=== PATIENT | female | born 1960 | race Caucasian/White ===

== ENCOUNTER → 2017-01-22 | Outpatient (CLI) | payer MEDICAID, OTHER ==
[2017-01-22 19:10] LABS: CH 29.8; CHCM 34.2; HCT 38.6 % (34.0-46.0); HDW 2.69; HGB 13.1 gm/dL (11.4-16.0); MCH 29.6 pg (25.0-35.0); MCHC 33.9 g/dL (31.0-37.0); MCV 87.4 fL (80.0-100.0); Mean Platelet Volume 7.3; RBC 4.41 m/uL (3.80-5.40); RDW 13.4 % (11.5-15.5); WBC 9.4 k/uL (3.8-10.6)
[2017-01-22 19:18] LABS: ALT 27 U/L (9-52); AST 21 U/L (14-36); Alkaline Phosphatase 76 U/L (38-126); Anion Gap 12 mmol/L; Blood Urea Nitrogen 13 mg/dL (7-17); Calcium 9.6 mg/dL (8.4-10.2); Carbon Dioxide 27 mmol/L (22-30); Chloride 102 mmol/L (98-107); Glucose 98 mg/dL (74-99); Non-African American GFR(MDRD) >60 (>60 ml/min/1.73 sqM); Sodium 141 mmol/L (137-145); Total Bilirubin 0.5 mg/dL (0.2-1.3)
== END ==
LOC: LABMAIN 18:36
PROVIDERS: ATTEND Hospitalist
DX: N39.0 Urinary tract infection, site not specified (principal)
CPT/HCPCS: 36415; 80053; 85027

== ENCOUNTER → 2017-04-06 | Outpatient (CLI) | payer OTHER ==
--- NOTE | 2017-04-08 07:11 | MM ---
Reason for exam: screening (asymptomatic). Last mammogram was performed 1 year and 8 months ago. History: Patient is postmenopausal. Took hormonal contraceptives for 6 years beginning at age 14. Took estrogen for 2 years beginning at age 51. Took progesterone for 2 years beginning at age 51. Physical Findings: A clinical breast exam by your physician is recommended on an annual basis and results should be correlated with mammographic findings. MG 3D Screening Mammo W/Cad Bilateral CC and MLO view(s) were taken. Prior study comparison: July 23, 2015, bilateral MG 3d screening mammo w/cad. July 03, 2014, bilateral MG screening mammo w CAD. June 02, 2013, bilateral digital screening mammo w/CAD. The breast tissue is heterogeneously dense. This may lower the sensitivity of mammography. Finding: There are 3 typically benign round calcifications in the right breast. There is no discrete abnormality. ASSESSMENT: Benign, BI-RAD 2 RECOMMENDATION: Routine screening mammogram of both breasts in 1 year.
== END | disposition home or self-care (01) ==
LOC: RADMAMWWP 09:35
PROVIDERS: ATTEND Obstetrics & Gynecology
DX: Z12.31 Encounter for screening mammogram for malignant neoplasm of breast (principal)
CPT/HCPCS: 77063; G0202

== ENCOUNTER → 2019-06-30 | Outpatient (CLI) | payer MEDICAID ==
--- NOTE | 2019-07-01 13:57 | MM ---
Reason for exam: screening (asymptomatic). Last mammogram was performed 2 years and 3 months ago. History: Patient is postmenopausal. Took hormonal contraceptives for 6 years beginning at age 14. Took estrogen for 2 years beginning at age 51. Took progesterone for 2 years beginning at age 51. Physical Findings: A clinical breast exam by your physician is recommended on an annual basis and results should be correlated with mammographic findings. MG 3D Screening Mammo W/Cad Bilateral CC and MLO view(s) were taken. Prior study comparison: April 06, 2017, bilateral MG 3d screening mammo w/cad. July 23, 2015, bilateral MG 3d screening mammo w/cad. The breast tissue is heterogeneously dense. This may lower the sensitivity of mammography. No suspicious abnormality. No significant changes when compared with prior studies. ASSESSMENT: Negative, BI-RAD 1 RECOMMENDATION: Routine screening mammogram of both breasts in 1 year.
== END | disposition home or self-care (01) ==
LOC: RADMAMWWP 08:41
PROVIDERS: ATTEND Family Medicine
DX: Z12.31 Encounter for screening mammogram for malignant neoplasm of breast (principal)
CPT/HCPCS: 77063; 77067

== ENCOUNTER → 2019-08-09 | Outpatient (CLI) | payer MEDICAID ==
--- NOTE | 2019-08-09 09:37 | BD ---
EXAMINATION TYPE: Axial Bone Density DATE OF EXAM: 08/09/2019 COMPARISON: 2011 CLINICAL HISTORY: Z 13.9 Height: 64 inches Weight: 158 pounds FRAX RISK QUESTIONS: Alcohol (3 or more units per day): no Family History (Parent hip fracture): yes, mother Glucocorticoids (More than 3mos):yes Advair daily (Ex: prednisone, prednisolone, methylprednisolone, dexamethasone, and hydrocortisone). History of Fracture in Adulthood: no Secondary Osteoporosis: 1. Type 1 Diabetes: no 2. Hyperthyroidism: no 3. Menopause before 45: no 4. Malnutrition: no 5. Chronic liver disease: no Rheumatoid Arthritis: no Current Tobacco Use: no RISK FACTORS HISTORY OF: Family History of Osteoporosis: yes, mother Active: yes Diet low in dairy products/other sources of calcium: no Postmenopausal woman: yes Take estrogen and/or progesterone medications: not now How long: hormonal contraceptives about 6 years, estrogen about 2 years Lost more than 2 inches in height since high school: no Frequent falls: no Poor Health: no Hyperparathyroidism: no Adrenal Insufficiency: no MEDICATIONS: Prednisone or other steroids: yes How Long: over 5 years Thyroid Medications: yes Which medication: Levothyroxine How Long: since about age 31 Osteoporosis Medications: no Additional Medications: occasional vitamin supplement Additional History: none to note EXAM MEASUREMENTS: Bone mineral densitometry was performed using the Central Test System. Bone mineral density as measured about the Lumbar spine is: ----- L1-L4(G/cm2): 1.190 T Score Values are as follows: ----- L2: -1.1 ----- L3: 0.6 ----- L4: 0.3 ----- L1-L4: 0.1 Bone mineral density has: Decreased -5.5% since study of: 04/16/2012 Bone mineral density about the R hip (g/cm2): 0.976 Bone mineral density about the L hip (g/cm2): 1.001 T Score values are as follows: -----R Neck: -0.4 -----L Neck: -0.3 -----R Total: 0.5 -----L Total: 0.4 Bone mineral density has: Decreased -4.4% since study of: 04/16/2012 IMPRESSION: Normal (Values between +1 and -1 indicate normal bone mass). Consider repeating this study in 5 year s or sooner if there is some new clinical indication. NOTE: T-SCORE=SD OF THE YOUNG ADULT MEAN.
--- NOTE | 2019-08-09 09:50 | US ---
EXAMINATION TYPE: US pelvic complete DATE OF EXAM: 08/09/2019 COMPARISON: NONE CLINICAL HISTORY: R10.2 PELVIC PAIN. TECHNIQUE: Transabdominal (TA). Date of LMP: 5+ years prior EXAM MEASUREMENTS: Uterus: 6.6 x 2.2 x 3.7 cm Endometrial Stripe: 0.3 cm Right Ovary: 1.4 x 1.2 x 1.2 cm Left Ovary: 1.8 x 1.0 x 1.0 cm 1. Uterus: Anteverted wnl 2. Endometrium: wnl 3. Right Ovary: wnl 4. Left Ovary: wnl 5. Bilateral Adnexa: wnl 6. Posterior cul-de-sac: wnl IMPRESSION: Unremarkable pelvic ultrasound. Endometrial thickness is within normal limits.
== END | disposition home or self-care (01) ==
LOC: RADBDWWP 08:06
PROVIDERS: ATTEND Family Medicine
DX: R10.2 Pelvic and perineal pain (principal); Z13.89 Encounter for screening for other disorder
CPT/HCPCS: 76856; 77080

== ENCOUNTER → 2020-09-28 | Outpatient (CLI) | payer MEDICAID ==
--- NOTE | 2020-10-01 12:03 | MM ---
Reason for exam: screening (asymptomatic). Last mammogram was performed 1 year and 3 months ago. History: Patient is postmenopausal. Took hormonal contraceptives for 6 years beginning at age 14. Took estrogen for 2 years beginning at age 51. Took progesterone for 2 years beginning at age 51. Physical Findings: A clinical breast exam by your physician is recommended on an annual basis and results should be correlated with mammographic findings. MG 3D Screening Mammo W/Cad Bilateral CC and MLO view(s) were taken. Prior study comparison: June 30, 2019, bilateral MG 3d screening mammo w/cad. April 06, 2017, bilateral MG 3d screening mammo w/cad. The breast tissue is heterogeneously dense. This may lower the sensitivity of mammography. There are benign appearing round calcifications in the right breast. There is no discrete abnormality. ASSESSMENT: Benign, BI-RAD 2 RECOMMENDATION: Routine screening mammogram of both breasts in 1 year.
== END | disposition home or self-care (01) ==
LOC: RADMAMWWP 10:27
PROVIDERS: ATTEND Obstetrics & Gynecology
DX: Z12.31 Encounter for screening mammogram for malignant neoplasm of breast (principal); Z78.0 Asymptomatic menopausal state
CPT/HCPCS: 77063; 77067

== ENCOUNTER → 2020-10-03 | Outpatient (CLI) | payer MEDICAID ==
--- NOTE | 2020-10-03 20:21 | ECHOF ---
Referral Reason:R01 cardiac murmur MEASUREMENTS -------- HEIGHT: 162.6 cm WEIGHT: 72.6 kg BP: RVIDd: 2.8 cm (< 3.3) IVSd: 1.0 cm (0.6 - 1.1) LVIDd: 4.2 cm (3.9 - 5.3) LVPWd: 1.3 cm (0.6 - 1.1) IVSs: 1.1 cm LVIDs: 3.1 cm LVPWs: 1.9 cm LA Diam: 3.2 cm (2.7 - 3.8) LAESV Index (A-L): 21.03 ml/m Ao Diam: 2.4 cm (2.0 - 3.7) AV Cusp: 1.6 cm (1.5 - 2.6) LA Diam: 2.6 cm (2.7 - 3.8) MV EXCURSION: 18.221 mm (> 18.000) MV EF SLOPE: 124 mm/s (70 - 150) EPSS: 0.2 cm MV E Ronald: 1.09 m/s MV DecT: 260 ms MV A Ronald: 1.08 m/s MV E/A Ratio: 1.01 AV maxP.77 mmHg AV meanP.87 mmHg RAP: 5.00 mmHg RVSP: 11.77 mmHg FINDINGS -------- Sinus rhythm. This was a technically adequate study. LV size, wall thickness and systolic function are normal, with an EF greater than 55%. The left alexx tricular size is normal. The right ventricle is normal in size. Normal LA size by volume 22+/-6 ml/m2. The right atrial size is normal. There is mild aortic stenosis present. Peak/mean gradient across the Aortic Valve is 19.77mmHg / 8. 87mmHg. The mitral valve is normal. Mild mitral regurgitation is present. The tricuspid valve appears structurally normal. Mild tricuspid regurgitation present. Right vent ricular systolic pressure is normal at < 35 mmHg. The pulmonic valve was not well visualized. There is no pulmonic regurgitation present. The aortic root size is normal. Echo free space represents a pericardial fat pad. CONCLUSIONS -------- 1. LV size, wall thickness and systolic function are normal, with an EF greater than 55%. 2. The left ventricular size is normal. 3. Normal LA size by volume 22+/-6 ml/m2. 4. There is mild aortic stenosis present. 5. Peak/mean gradient across the Aortic Valve is 19.77mmHg / 8.87mmHg. 6. Mild mitral regurgitation is present. 7. Mild tricuspid regurgitation present. 8. Echo free space represents a pericardial fat pad. MONUMENT LETTERER: Zoila Newberry RDCS
== END | disposition home or self-care (01) ==
LOC: RADECHMAIN 13:44
PROVIDERS: ATTEND Family Medicine
DX: I08.1 Rheumatic disorders of both mitral and tricuspid valves (principal)
CPT/HCPCS: 93306

== ENCOUNTER → 2020-12-14 | Outpatient (CLI) | payer MEDICAID ==
[2020-12-14 14:58] LABS: HCT 39.1 % (37.2-46.3); HGB 12.8 g/dL (12.0-15.0); MCH 28.8 pg (27.0-32.0); MCHC 32.7 g/dL (32.0-37.0); MCV 87.9 fL (80.0-97.0); Platelet Count 312 X 10*3/uL (140-440); RBC 4.45 X 10*6/uL (4.10-5.20); RDW 12.4 % (11.5-14.5); WBC 7.01 X 10*3/uL (4.50-10.00)
[2020-12-14 15:46] LABS: African American GFR (CKD) 107.6 (60.0-200.0); Albumin 4.7 g/dL (3.80-4.90); Albumin/Globulin Ratio 1.68 (1.60-3.17); Anion Gap 6.8 mmol/L (4.00-12.00); Calcium 9.4 mg/dL (8.7-10.3); Carbon Dioxide 29.2 mmol/L (21.6-31.8); Chol/HDL Ratio 2.17; Globulin 2.8 g/dL (1.6-3.3); LDL Cholesterol,Calculated 87.8 mg/dL (0.0-131.0); Non-African American GFR(CKD) 92.9 (60.0-200.0); Potassium 4.4 mmol/L (3.5-5.5); Total Bilirubin 0.5 mg/dL (0.2-1.2); Total Protein 7.5 g/dL (6.2-8.2); VLDL Calculation 15.2 mg/dL (5.00-40.00)
[2020-12-14 15:54] LABS: T4, Free (Free Thyroxine) 1.8 ng/dL (0.80-1.80)
== END | disposition home or self-care (01) ==
LOC: LABWHC1 09:22
PROVIDERS: ATTEND Family Medicine
DX: Z00.00 Encounter for general adult medical examination without abnormal findings (principal); E03.9 Hypothyroidism, unspecified; Z20.822 Contact with and (suspected) exposure to COVID-19; R79.89 Other specified abnormal findings of blood chemistry; R53.83 Other fatigue
CPT/HCPCS: 36415; 80053; 80061; 82306; 84439; 84443; 85027; 86769

== ENCOUNTER → 2021-06-07 | Outpatient (CLI) | payer MEDICAID | END | disposition home or self-care (01) | LOC: LABWHC1 13:34 | PROVIDERS: ATTEND Family Medicine | DX: Z20.828 Contact with and (suspected) exposure to other viral communicable diseases (principal) | CPT/HCPCS: 36415; 86769 ==

== ENCOUNTER → 2022-01-07 | Outpatient (CLI) | payer MEDICAID | END | disposition home or self-care (01) | LOC: RADMAMWWP 14:40 | PROVIDERS: ATTEND Obstetrics & Gynecology | DX: Z12.31 Encounter for screening mammogram for malignant neoplasm of breast (principal) | CPT/HCPCS: 77063; 77067 ==

== ENCOUNTER → 2022-01-13 | Outpatient (CLI) | payer MEDICAID ==
--- NOTE | 2022-01-13 08:21 | USB ---
Reason for Exam: Additional evaluation requested from abnormal screening. Last screening mammogram was performed less than 1 month ago. Patient History: Menarche at age 10. First Full-Term at age 22. Postmenopausal. Estrogen, starting at age 51 for 2 years. Progesterone, starting at age 51 for 2 years. Hormonal Contraceptives for 6 years from age 14 until age 20. Risk Values: [place] 5 year model risk: 1.4%. NCI Lifetime model risk: 6.0%. Prior Study Comparison: 06/30/2019 Bilateral Screening Mammogram, [facility]. 09/28/2020 Bilateral Screening Mammogram, [facility]. 01/07/2022 Bilateral MG 3D screening mammo w/cad, [facility]. Tissue Density: Right: The breast tissue is heterogeneously dense. This may lower the sensitivity of mammography. Findings: Analyzed By CAD. Mammogram Under compression the focal density within the anterior to mid right breast largely disperses. Under compression discrete suspicious architectural distortion, spiculated or lobular mass is not identified. Given the apparent change from prior mammograms ultrasound is recommended. Technique: Method: Targeted. Findings: The lower section of the breast of the right breast, the axilla of the right breast and the retroareolar of the right breast were scanned. Lower half of the right breast was evaluated with real-time linear array sonography. Near the 3:00 position 3 cm from the nipple there is an oval anechoic structure with posterior wall enhancement. This may be a cyst. Precautionary short-term follow-up mammogram and ultrasound is recommended. Overall Assessment: Probably benign, BI-RAD 3 Assessment: MG 3D work up w/cad RT - Right: Incomplete: need additional imaging evaluation, BI-RAD 0. US breast workup limited RT - Right: Probably benign, BI-RAD 3. Management: Diagnostic Mammogram of the right breast in 6 months. Diagnostic Breast Ultrasound of the right breast in 6 months. A clinical breast exam by your physician is recommended on an annual basis and results should be correlated with mammographic findings. Results were given to the patient verbally at the time of exam. Patient should continue monthly so breast exam. Negative mammogram or negative ultrasound should not preclude biopsy of suspicious palpable abnormalities. Electronically signed and approved by: Jose L Barton D.O. Radiologis
--- NOTE | 2022-01-14 14:31 | MM ---
Reason for Exam: Additional evaluation requested from abnormal screening. Last screening mammogram was performed less than 1 month ago. Patient History: Menarche at age 10. First Full-Term at age 22. Postmenopausal. Estrogen, starting at age 51 for 2 years. Progesterone, starting at age 51 for 2 years. Hormonal Contraceptives for 6 years from age 14 until age 20. Risk Values: [place] 5 year model risk: 1.4%. NCI Lifetime model risk: 6.0%. Prior Study Comparison: 06/30/2019 Bilateral Screening Mammogram, [facility]. 09/28/2020 Bilateral Screening Mammogram, [facility]. 01/07/2022 Bilateral MG 3D screening mammo w/cad, [facility]. Tissue Density: Right: The breast tissue is heterogeneously dense. This may lower the sensitivity of mammography. Findings: Analyzed By CAD. Mammogram Under compression the focal density within the anterior to mid right breast largely disperses. Under compression discrete suspicious architectural distortion, spiculated or lobular mass is not identified. Given the apparent change from prior mammograms ultrasound is recommended. Technique: Method: Targeted. Findings: The lower section of the breast of the right breast, the axilla of the right breast and the retroareolar of the right breast were scanned. Lower half of the right breast was evaluated with real-time linear array sonography. Near the 3:00 position 3 cm from the nipple there is an oval anechoic structure with posterior wall enhancement. This may be a cyst. Precautionary short-term follow-up mammogram and ultrasound is recommended. Overall Assessment: Probably benign, BI-RAD 3 Assessment: MG 3D work up w/cad RT - Right: Incomplete: need additional imaging evaluation, BI-RAD 0. US breast workup limited RT - Right: Probably benign, BI-RAD 3. Management: Diagnostic Mammogram of the right breast in 6 months. Diagnostic Breast Ultrasound of the right breast in 6 months. A clinical breast exam by your physician is recommended on an annual basis and results should be correlated with mammographic findings. Results were given to the patient verbally at the time of exam. Patient should continue monthly so breast exam. Negative mammogram or negative ultrasound should not preclude biopsy of suspicious palpable abnormalities. Electronically signed and approved by: Jose L Barton D.O. Radiologis
== END | disposition home or self-care (01) ==
LOC: RADMAMWWP 07:10
PROVIDERS: ATTEND Obstetrics & Gynecology
DX: R92.8 Other abnormal and inconclusive findings on diagnostic imaging of breast (principal)
CPT/HCPCS: 77061; 77065

== ENCOUNTER → 2022-02-27 | Outpatient (CLI) | payer MEDICAID ==
--- NOTE | 2022-02-27 17:50 | BD ---
EXAMINATION TYPE: Axial Bone Density DATE OF EXAM: 02/27/2022 COMPARISON: 2011 CLINICAL HISTORY: 61 years year old Female. ICD-10 CODE: N95.1 MENOPAUSAL AND FEMALE CLIMACTERIC STA CHRISTOPHE Height: 62.5 Weight: 146 FRAX RISK QUESTIONS: Alcohol (3 or more units per day): NO Family History (Parent hip fracture): MOTHER Glucocorticoids (More than 3mos): NO History of Fracture in Adulthood: NO Secondary Osteoporosis: 1. Type 1 Diabetes: NO 2. Hyperthyroidism: NO 3. Menopause before 45: NO 4. Malnutrition: NO 5. Chronic liver disease: NO Rheumatoid Arthritis: NO Current Tobacco Use: NO RISK FACTORS HISTORY OF: Hip Fracture (Right/Left): NO Spine Fracture: NO History of Wrist Fracture: NO Surgery to Spine/Hip(right/left)/Wrist (right/left): NO Family History of Osteoporosis: MOTHER Active: YES Diet low in dairy products/other sources of calcium: YES Postmenopausal woman: YES Take estrogen and/or progesterone medications: NO Lost more than 2 inches in height since high school: NO Frequent falls: NO Poor Health: NO Hyperparathyroidism: NO Adrenal Insufficiency: NO MEDICATIONS: Prednisone or other steroids: NO Thyroid Medications: LEVOTHYROXIN How Long: PAST 31 YEARS Osteoporosis Medications:NO Additional Medications: ADVAIR, INHALER, Additional History: EXAM MEASUREMENTS: Bone mineral densitometry was performed using the [employer] System. Bone mineral density as measured about the Lumbar spine is: ----- L1-L4(G/cm2): 1.168 T Score Values are as follows: ----- L1: 0.3 ----- L2: -0.6 ----- L3: 0.1 ----- L4: -0.1 ----- L1-L4: 0.0 Bone mineral density has: DECREASED 7.0 % since study of: 04/16/2012 Bone mineral density about the R hip (g/cm2): 0.950 Bone mineral density about the L hip (g/cm2): 0.965 T Score values are as follows: -----R Neck: -0.6 -----L Neck: -0.5 -----R Total: 0.4 -----L Total: 0.0 Bone mineral density has: DECREASED 6.7 % since study of: 04/16/2012 FRAX%s: The graph provided illustrates a 14.6% chance for a major osteoporotic fx and a 0.4% chance f or the hips probability for fx in 10 years time. IMPRESSION: Normal (Values between +1 and -1 indicate normal bone mass). Consider repeating this study in 5 year s or sooner if there is some new clinical indication. NOTE: T-SCORE=SD OF THE YOUNG ADULT MEAN.
== END | disposition home or self-care (01) ==
LOC: RADBDWWP 15:09
PROVIDERS: ATTEND Obstetrics & Gynecology
DX: N95.1 Menopausal and female climacteric states (principal)
CPT/HCPCS: 77080

== ENCOUNTER → 2022-05-22 | Outpatient (CLI) | payer MEDICAID ==
--- NOTE | 2022-05-22 10:46 | MM ---
Reason for Exam: Follow-up at short interval from prior study. Last screening mammogram was performed 4 month(s) ago. Patient History: Menarche at age 10. First Full-Term at age 22. Postmenopausal. Patient has history of breast feeding. Estrogen, starting at age 51 for 2 years. Progesterone, starting at age 51 for 2 years. Hormonal Contraceptives for 6 years from age 14 until age 20. Risk Values: [place] 5 year model risk: 1.4%. NCI Lifetime model risk: 6.0%. Prior Study Comparison: 04/06/2017 Bilateral Screening Mammogram, [facility]. 06/30/2019 Bilateral Screening Mammogram, [facility]. 09/28/2020 Bilateral Screening Mammogram, [facility]. 01/07/2022 Bilateral MG 3D screening mammo w/cad, [facility]. 01/13/2022 Right MG 3D work up w/cad RT, [facility]. 01/13/2022 Right US breast workup limited RT, [facility]. Tissue Density: Right: The breast tissue is heterogeneously dense. This may lower the sensitivity of mammography. Findings: Analyzed By CAD. The previous central inferior asymmetric density on the MLO view has not persisted. Patient may return to annual screening studies. No significant change from prior exams. Overall Assessment: Benign, BI-RAD 2 Management: Screening Mammogram of both breasts in 6 months. 1. Patient should continue monthly self breast exams. 2. A clinical breast exam by your physician is recommended on an annual basis. 3. This exam should not preclude additional follow-up of suspicious palpable abnormalities. Results were given to the patient verbally at the time of exam. Electronically signed and approved by: Kaylynn Ley M.D. Radiologist
== END | disposition home or self-care (01) ==
LOC: RADMAMWWP 09:54
PROVIDERS: ATTEND Obstetrics & Gynecology
DX: R92.8 Other abnormal and inconclusive findings on diagnostic imaging of breast (principal)
CPT/HCPCS: 77061; 77065

== ENCOUNTER → 2023-01-09 | Outpatient (CLI) | payer MEDICAID ==
[~2023-01-09] MED LIST: REGADENOSON 0.4 MG/5 ML SYRINGE IV PRN
--- NOTE | 2023-01-09 08:41 | CA ---
Transthoracic Echo Report Name: Paige Goins Age: 62 Gender: F : 1960 Exam Date: 01/09/2023 07:33 Exam Location: [place] [facility] Ht (in): 64 Wt (lb): 147 Ordering Physician: Keith Anaya MD ([id number]) Attending/Referring Phys: [employer] 5 Teacher Sariah Lisa RDCS Procedure CPT: Indications: abnormal ekg Cardiac Hx: Technical Quality: Fair Contrast 1: Total Dose (mL): Contrast 2: Total Dose (mL): MEASUREMENTS (Male / Female) Normal Values 2D ECHO LV Diastolic Diameter PLAX 4.8 cm 4.2 - 5.9 / 3.9 - 5.3 cm LV Systolic Diameter PLAX 3.0 cm IVS Diastolic Thickness 0.9 cm 0.6 - 1.0 / 0.6 - 0.9 cm LVPW Diastolic Thickness 1.1 cm 0.6 - 1.0 / 0.6 - 0.9 cm LV Relative Wall Thickness 0.4 RV Internal Dim ED PLAX 2.2 cm LA Volume 50.9 cm??? 18 - 58 / 22 - 52 cm??? M-MODE Aortic Root Diameter MM 2.3 cm LA Systolic Diameter MM 3.1 cm LA Ao Ratio MM 1.3 AV Cusp Separation MM 1.5 cm DOPPLER AV Peak Velocity 204.7 cm/s AV Peak Gradient 16.8 mmHg AV Mean Velocity 135.1 cm/s AV Mean Gradient 8.3 mmHg AV Velocity Time Integral 49.9 cm LVOT Peak Velocity 139.6 cm/s LVOT Peak Gradient 7.8 mmHg LVOT Velocity Time Integral 36.8 cm MV Area PHT 2.8 cm??? Mitral E Point Velocity 93.6 cm/s Mitral A Point Velocity 102.1 cm/s Mitral E to A Ratio 0.9 MV Deceleration Time 266.4 ms MV E' Velocity 11.7 cm/s Mitral E to MV E' Ratio 8.0 TR Peak Velocity 230.4 cm/s TR Peak Gradient 21.2 mmHg Right Ventricular Systolic Press 24.3 mmHg FINDINGS Left Ventricle Mildly increased left ventricular wall thickness. Left ventricular cavity size normal. Normal left ventricular systolic function with no obvious regional wall motion abnormalities. Left ventricular ejection fraction is estimated at 55-60 %. Right Ventricle Normal right ventricular size and function. Right ventricular systolic pressure within normal limits. Right Atrium Normal right atrial size. Left Atrium Normal left atrial size. Mitral Valve Structurally normal mitral valve. Mild mitral regurgitation. Aortic Valve Trileaflet aortic valve. No aortic stenosis. Trace aortic regurgitation. Tricuspid Valve Structurally normal tricuspid valve. Mild tricuspid regurgitation. Pulmonic Valve Trace pulmonic regurgitation. Pericardium No pericardial effusion. Aorta Normal size aortic root and proximal ascending aorta. CONCLUSIONS 1. Normal left ventricle size and systolic function 2. Mild mitral and tricuspid regurgitation 3. Trace aortic regurgitation Previewed by: Dr. Jaycee Ngo MD (Electronically Signed) Final Date: 09 January 2023 08:40
--- NOTE | 2023-01-09 11:11 | CA ---
Lexiscan Nuclear Stress Test Report Name: Paige Goins Exam Date: 01/09/2023 09:26 Exam Location: [place] Stress Ht (in): 64 Wt (lb): 157 BSA: 1.76 Ordering Phys: Keith Anaya MD Referring Phys: TORY,, Technologist: Maicol Camacho Age: 62 Gender: F : 1960 Procedure CPT: Indications: abnormal ekg ICD-10 Codes: Patient History: CHEST PAIN, FAMILY HX OF HEART DISEASE, ASTHMA Medications: SYNTHROID, ADVAIR Meds past 24 hrs: Pretest Chest Pain: STRESS TEST Lexiscan Protocol Exercise Duration (min:sec): 01:[address] Depressions (mm): Angina Score: Constantino Score: Resting HR (bpm): 53 Peak HR (bpm): 94 Resting BP (mmHg): 144 / 77 Peak BP (mmHg): 179 / 145 MPHR: 156 Target HR: 133 % MPHR: 60 METS: 1.0 Total Dose: Peak Dose: Atropine: Double Product: 17200 BP Response: Stress Termination: INFUSION COMPLETE Stress Symptoms: NAUSEA Stress Summary: ECG ANALYSIS Resting ECG: Sinus rhythm. Normal conduction. No arrhythmias. Non-specific ST-T wave changes. Stress ECG: T-wave inversion in the inferolateral leads CONCLUSIONS 1. Nondiagnostic electrocardiographic response to Lexiscan infusion with T-wave inversion of unclear etiology 2. Nuclear images will be reported separately Dr. Jaycee Ngo MD (Electronically Signed) Final Date: 09 January 2023 11:10
--- NOTE | 2023-01-09 15:50 | NM ---
EXAMINATION TYPE: NM stress lexiscan cardiolite DATE OF EXAM: 01/09/2023 COMPARISON: NONE HISTORY: Abnormal EKG TECHNIQUE: After the intravenous administration of 9.5 mCi Tc 99m Sestamibi - Cardiolite resting SPE CT images acquired 65 minutes post injection. At peak stress 24.7 mCi Tc 99m Sestamibi - Stress images obtained 35 minutes post injection The patient was stressed with 0.4mg Lexiscan. FINDINGS: There is a small defect on the SPECT images within the mid anterior wall. This area has a more normal appearance on the resting images. This area is not identified on the polar maps. Small ischemic wright ge could be considered. There maybe some dyskinesia at the cardiac apex. Ejection fraction is calculated to be 58 %. IMPRESSION: 1. Small reversible defect along the mid anterior wall on SPECT imaging. This is not identified on Po lar maps does not entirely follow a vascular distribution raises the possibility of artifact. Correla te with the reported EKG changes. 2. No additional suspicious area for stress-induced ischemic change or prior infarct. 3. Dyskinesia of the right iliac apex may be present. 4. Normal ejection fraction.
== END | disposition home or self-care (01) ==
LOC: RADNMMAIN 07:24
PROVIDERS: ATTEND Internal Medicine Interventional Cardiology
DX: G24.9 Dystonia, unspecified (principal); R94.31 Abnormal electrocardiogram [ECG] [EKG]
CPT/HCPCS: 93017; 93306; 78452; A9500; J2785

== ENCOUNTER → 2023-01-13 | Outpatient (CLI) | payer MEDICAID ==
--- NOTE | 2023-01-14 20:03 | MM ---
Reason for Exam: Screening (asymptomatic). Last screening mammogram was performed 12 month(s) ago. Patient History: Menarche at age 10. First Full-Term at age 22. Postmenopausal. Patient has history of breast feeding. Estrogen, starting at age 51 for 2 years. Progesterone, starting at age 51 for 2 years. Hormonal Contraceptives for 6 years from age 14 until age 20. Maternal aunt had ovarian cancer at or over age 50. Risk Values: [place] 5 year model risk: 1.4%. NCI Lifetime model risk: 5.8%. Prior Study Comparison: 04/06/2017 Bilateral Screening Mammogram, [facility]. 06/30/2019 Bilateral Screening Mammogram, [facility]. 09/28/2020 Bilateral Screening Mammogram, [facility]. 01/07/2022 Bilateral MG 3D screening mammo w/cad, [facility]. 01/13/2022 Right MG 3D work up w/cad RT, [facility]. 05/22/2022 Right MG 3D diag mammo w/cad RT, [facility]. Tissue Density: The breast tissue is heterogeneously dense. This may lower the sensitivity of mammography. Findings: Analyzed By CAD. There is no suspicious group of microcalcifications or new suspicious mass in either breast. Overall Assessment: Negative, BI-RAD 1 Management: Screening Mammogram of both breasts in 1 year. . Patient should continue monthly self-breast exams. A clinical breast exam by your physician is recommended on an annual basis. This exam should not preclude additional follow-up of suspicious palpable abnormalities. Note on [place] scores and lifetime risk: 1. A [place] score greater than 3% is considered moderate risk. If this is the case, consider specialist referral to assess eligibility for a risk reducing agent. 2. If overall lifetime risk for the development of breast cancer is 20% or higher, the patient may qualify for future screening with alternating mammogram and breast MRI. Electronically signed and approved by: Kaylynn Ley M.D. Radiologist
== END | disposition home or self-care (01) ==
LOC: RADMAMWWP 09:52
PROVIDERS: ATTEND Obstetrics & Gynecology
DX: Z12.31 Encounter for screening mammogram for malignant neoplasm of breast (principal); Z78.0 Asymptomatic menopausal state
CPT/HCPCS: 77063; 77067

== ENCOUNTER 2023-07-22 05:53 | Day surgery (SDC) | payer MEDICAID ==
[2023-07-22] MEDS ORDERED: LIDOCAINE 1% (10MG/ML) FOR IV START INTRADERMA PRN (06:09)
[2023-07-22] MEDS ORDERED: PROPOFOL 10 MG/ML 20 ML VIAL IV ONE (06:12)
[2023-07-22] MEDS: LACTATED RINGERS 1,000 ML IV SCH ×2 (06:36→06:50)
[2023-07-22 06:44] VITALS: TEMP 98.2
--- NOTE | 2023-07-22 07:08 | P.PCN ---
Date of Procedure: 07/22/23 Procedure(s) Performed: BRIEF HISTORY: Patient is a 62-year-old pleasant white female scheduled for an elective colonoscopy as a part of screening for colon cancer. PROCEDURE PERFORMED: Colonoscopy. PREOPERATIVE DIAGNOSIS: Screening for colon cancer. IV sedation per Anesthesia. PROCEDURE: After informed consent was obtained, the patient, was brought into the endoscopy unit. IV sedation was administered by Anesthesia under continuous monitoring. Digital rectal examination was normal. Initially the Olympus CF-160 flexible video colonoscope was then inserted in the rectum, gradually advanced into the cecum without any difficulty. Careful examination was performed as the scope was gradually being withdrawn. Ileocecal valve and the appendiceal orifice were visualized and appeared normal. Prep was excellent. Mucosa of the cecum, ascending colon, transverse colon, descending colon, sigmoid colon, and rectum appeared normal. Scattered sigmoid diverticulosis Retroflexion was performed in the rectum and no lesions were seen. The patient tolerated the procedure well. IMPRESSION: Normal-appearing colon from rectum to cecum with no evidence of colorectal neoplasia . Scattered sigmoid diverticulosis. RECOMMENDATIONS: Findings of this examination were discussed with the patient as well as a family. She was advised to have a repeat screening colonoscopy in 10 years.
[2023-07-22 07:33] VITALS: BP 121/60; PULSE 72; RESP 16
== END 2023-07-22 07:44 | disposition home or self-care (01) ==
LOC: ORWHC2ENDO 05:53
PROVIDERS: ATTEND Internal Medicine Gastroenterology
DX: Z12.11 Encounter for screening for malignant neoplasm of colon (principal); K57.30 Diverticulosis of large intestine without perforation or abscess without bleeding; J45.909 Unspecified asthma, uncomplicated; E07.9 Disorder of thyroid, unspecified; Z79.899 Other long term (current) drug therapy; Z79.890 Hormone replacement therapy
CPT/HCPCS: J2704; G0121

== ENCOUNTER → 2023-09-30 | Outpatient (CLI) | payer MEDICAID ==
[2023-09-30 19:19] LABS: BUN/Creat Ratio 22.86 Ratio (12.00-20.00); Chol/HDL Ratio 2.15 Ratio; Glucose 114 mg/dL (70-110)
[2023-09-30 19:20] LABS: ALT 24 U/L (8-44); AST 27 U/L (13-35); Albumin 4.7 g/dL (3.8-4.9); Albumin/Globulin Ratio 1.62 Ratio (1.60-3.17); Alkaline Phosphatase 84 U/L (41-126); Calcium 9.9 mg/dL (8.7-10.3); Carbon Dioxide 24.9 mmol/L (21.6-31.8); Chloride 102 mmol/L (96-109); Globulin 2.9 g/dL (1.6-3.3); LDL Cholesterol,Calculated 81.8 mg/dL (0.0-131.0); Potassium 4.2 mmol/L (3.5-5.5); Sodium 140 mmol/L (135-145); T4, Free (Free Thyroxine) 1.59 ng/dL (0.80-1.80); Total Bilirubin 0.3 mg/dL (0.3-1.2); Total Protein 7.6 g/dL (6.2-8.2)
[2023-09-30 21:27] LABS: HGB 13.1 g/dL (12.0-15.0); MCH 29.2 pg (27.0-32.0); MCV 91.5 FL (80.0-97.0); Mean Platelet Volume 11.5 FL (9.5-12.2); NRBC Per 100 WBC 0 X 10*3/uL (0.00-0.01); Platelet Count 332 X 10*3/uL (140-440); RBC 4.48 X 10*6/uL (4.10-5.20); RDW 12.9 % (11.5-14.5); WBC 9.55 X 10*3/uL (4.50-10.00)
== END | disposition home or self-care (01) ==
LOC: LABWHC1 13:51
PROVIDERS: ATTEND Family Medicine
DX: Z00.00 Encounter for general adult medical examination without abnormal findings (principal); E03.9 Hypothyroidism, unspecified; J45.40 Moderate persistent asthma, uncomplicated
CPT/HCPCS: 36415; 80053; 80061; 84439; 84443; 84480; 85027

== ENCOUNTER → 2024-01-15 | Outpatient (CLI) | payer MEDICAID ==
--- NOTE | 2024-01-15 18:43 | MM ---
Reason for Exam: Screening (asymptomatic). Last screening mammogram was performed 12 month(s) ago. Patient History: Menarche at age 10. First Full-Term at age 22. Postmenopausal. Patient has history of breast feeding. Estrogen, starting at age 51 for 2 years. Progesterone, starting at age 51 for 2 years. Hormonal Contraceptives for 6 years from age 14 until age 20. Maternal aunt had ovarian cancer at or over age 50. Risk Values: Brooklyn 5 year model risk: 1.5%. NCI Lifetime model risk: 5.6%. Prior Study Comparison: 01/13/2022 Right MG 3D work up w/cad RT, [facility]. 05/22/2022 Right MG 3D diag mammo w/cad RT, [facility]. 01/13/2023 Bilateral MG 3D screening mammo w/cad, [facility]. Tissue Density: The breasts are heterogeneously dense, which may obscure small masses. Findings: Analyzed By CAD. The pattern is symmetrical. No significant interval change. Benign spherical calcifications right breast. No suspicious groups of microcalcifications, spiculated or lobular masses, architectural distortion or other secondary signs of malignancy are mammographically apparent. Overall Assessment: Benign, BI-RAD 2 Management: Screening Mammogram of both breasts in 1 year. A negative mammogram report should not preclude additional follow up of suspicious palpable abnormalities. Patient should continue monthly self breast exam. A clinical breast exam by your physician is recommended on an annual basis and results should be correlated with mammographic findings. Note on Brooklyn scores and lifetime risk: 1. A Brooklyn score greater than 3% is considered moderate risk. If this is the case, consider specialist referral to assess eligibility for a risk reducing agent. 2. If overall lifetime risk for the development of breast cancer is 20% or higher, the patient may qualify for future screening with alternating mammogram and breast MRI. Electronically signed and approved by: Jose L Barton D.O. Radiologis
== END ==
LOC: RADMAMWWP 12:53
PROVIDERS: ATTEND Obstetrics & Gynecology
DX: Z12.31 Encounter for screening mammogram for malignant neoplasm of breast (principal); R92.333 Mammographic heterogeneous density, bilateral breasts; Z78.0 Asymptomatic menopausal state; Z80.41 Family history of malignant neoplasm of ovary
CPT/HCPCS: 77063; 77067

== ENCOUNTER → 2024-01-22 | Outpatient (CLI) | payer MEDICAID | END | disposition home or self-care (01) | LOC: LABWHC1 08:44 | PROVIDERS: ATTEND Midwife | DX: Z12.4 Encounter for screening for malignant neoplasm of cervix (principal) ==

== ENCOUNTER → 2024-07-05 | Outpatient (CLI) | payer MEDICAID ==
[2024-07-05 15:52] LABS: Chol/HDL Ratio 1.98 Ratio
[2024-07-05 15:53] LABS: ALT 18 U/L (8-44); AST 21 U/L (13-35); Albumin 4.9 g/dL (3.8-4.9); Albumin/Globulin Ratio 1.53 Ratio (1.60-3.17); Alkaline Phosphatase 91 U/L (41-126); BUN/Creat Ratio 23.29 Ratio (12.00-20.00); Blood Urea Nitrogen 16.3 mg/dL (9.0-27.0); Calcium 9.7 mg/dL (8.7-10.3); Carbon Dioxide 26.7 mmol/L (21.6-31.8); Chloride 103 mmol/L (96-109); Globulin 3.2 g/dL (1.6-3.3); Glucose 113 mg/dL (70-110); HCT 40.7 % (37.2-46.3); HGB 13.1 g/dL (12.0-15.0); LDL Cholesterol,Calculated 98.1 mg/dL (0.0-131.0); MCH 29.2 pg (27.0-32.0); MCHC 32.2 g/dL (32.0-37.0); MCV 90.6 FL (80.0-97.0); NRBC Per 100 WBC 0 X 10*3/uL (0.00-0.01); Platelet Count 293 X 10*3/uL (140-440); Potassium 4.4 mmol/L (3.5-5.5); RBC 4.49 X 10*6/uL (4.10-5.20); RDW 13.2 % (11.5-14.5); Sodium 140 mmol/L (135-145); Total Bilirubin 0.4 mg/dL (0.3-1.2); Total Protein 8.1 g/dL (6.2-8.2); WBC 7.28 X 10*3/uL (4.50-10.00)
== END | disposition home or self-care (01) ==
LOC: LABWHC1 08:07
PROVIDERS: ATTEND Family Medicine
DX: E03.9 Hypothyroidism, unspecified (principal); J45.40 Moderate persistent asthma, uncomplicated; R73.01 Impaired fasting glucose
CPT/HCPCS: 36415; 80053; 80061; 83036; 84439; 84443; 84480; 85027

== ENCOUNTER → 2024-07-05 | Outpatient (CLI) | payer MEDICAID | END | disposition home or self-care (01) | LOC: LABWHC1 08:11 | PROVIDERS: ATTEND Obstetrics & Gynecology | DX: R10.2 Pelvic and perineal pain (principal); R14.0 Abdominal distension (gaseous) | CPT/HCPCS: 36415; 86304 ==

== ENCOUNTER → 2024-12-01 | Outpatient (CLI) | payer MEDICAID ==
--- NOTE | 2024-12-01 12:38 | BD ---
EXAMINATION TYPE: Axial Bone Density DATE OF EXAM: 12/01/2024 CLINICAL HISTORY: 64 years old Female. ICD-10 CODE: Z78.0 MENOPAUSAL STATE , Additional History: Height: 64" Weight: 161lbs FRAX RISK QUESTIONS: Alcohol (3 or more units per day): No Family History (Parent hip fracture): Yes, Mother Glucocorticoids (More than 3mos): No (Ex: prednisone, prednisolone, methylprednisolone, dexamethasone, and hydrocortisone). History of Fracture in Adulthood: Yes, last April radial fx from fall Secondary Osteoporosis: 1. Type 1 Diabetes: No 2. Hyperthyroidism: No 3. Menopause before 45: No 4. Malnutrition: No 5. Chronic liver disease: No Rheumatoid Arthritis: No Current Tobacco Use: No RISK FACTORS HISTORY OF: Hip Fracture (Right/Left): No Spine Fracture: No History of Wrist Fracture: No Surgery to Spine/Hip(right/left)/Wrist (right/left): No MEDICATIONS: Thyroid Medications: Yes Which medication: Levothyroxine How Long: Since age 30 Osteoporosis Medications: No EXAM MEASUREMENTS: Bone mineral densitometry was performed using the [employer] System. Bone mineral density as measured about the Lumbar spine is: ----- L1-L4(G/cm2): 1.196 T Score Values are as follows: ----- L1: 0.6 ----- L2: -0.7 ----- L3: 0.5 ----- L4: 0.2 ----- L1-L4: 0.1 Z Score Values are as follows: ----- L1: 2.1 ----- L2: 0.8 ----- L3: 2.0 ----- L4: 1.7 ----- L1-L4: 1.7 Bone mineral density has: increased 1.8% since study of: 02/27/2022 Bone mineral density about the R hip (g/cm2): 1.059 Bone mineral density about the L hip (g/cm2): 1.013 T Score values are as follows: -----R Neck: -0.7 -----L Neck: -0.6 -----R Total: 0.4 -----L Total: 0.0 Z Score values are as follows: -----R Neck: 0.8 -----L Neck: 0.9 -----R Total: 1.6 -----L Total: 1.3 Bone mineral density has: no change % since study of: 02/27/2022 FRAX%s: The graph provided illustrates a 23.4% chance for a major osteoporotic fx and a 1.0% chance f or the hips probability for fx in 10 years time. IMPRESSION: Normal (Values between +1 and -1 indicate normal bone mass). Consider repeating this study in 5 year s or sooner if there is some new clinical indication. NOTE: T-SCORE=SD OF THE YOUNG ADULT MEAN. [facility], , 12/01/2024 11:41 AM
== END | disposition home or self-care (01) ==
LOC: RADBDWWP 08:15
PROVIDERS: ATTEND Midwife
DX: Z78.0 Asymptomatic menopausal state (principal)
CPT/HCPCS: 77080

== ENCOUNTER → 2024-12-05 | Outpatient (CLI) | payer MEDICAID ==
--- NOTE | 2024-12-05 16:00 | US ---
EXAMINATION TYPE: US transvaginal DATE OF EXAM: 12/05/2024 COMPARISON: US 08/09/2019 CLINICAL INDICATION: Female, 64 years old with history of R10.2 PELVIC PAIN; Pelvic pain. Family hx o varian cancer. TECHNIQUE: Transvaginal (TV). TA view was attempted. but ovaries were still not visualized. Transvaginal grayscale sonographic images of the pelvis were acquired. Doppler imaging: Not performed. FINDINGS: Date of LMP: N/A EXAM MEASUREMENTS: Uterus: 4.7 x 2.4 x 3.6 cm Endometrial Stripe: 0.2 cm Right Ovary: Not visualized due to bowel gas. Left Ovary: Not visualized due to bowel gas. 1. Uterus: Anteverted and otherwise wnl. Tiny cervical nabothian cysts measuring up to 4 mm. Some p unctate echogenic foci in the region of the cervix. 2. Endometrium: wnl 3. Right Ovary: Obscured by overlying bowel gas and/or atrophy 4. Left Ovary: Obscured by overlying bowel gas and/or atrophy 5. Bilateral Adnexa: wnl 6. Posterior cul-de-sac: wnl IMPRESSION: 1. Some punctate calcifications in the region of the cervix could reflect sequela of prior infection or instrumentation. Tiny cervical nabothian cysts measuring up to 4 mm. 2. Normal, thin endometrial stripe at 2 mm. 3. Unable to visualize either ovary. [facility], , 12/05/2024 3:57 PM
== END | disposition home or self-care (01) ==
LOC: RADUSWWP 15:09
PROVIDERS: ATTEND Midwife
DX: N88.8 Other specified noninflammatory disorders of cervix uteri (principal); R10.2 Pelvic and perineal pain
CPT/HCPCS: 76830

== ENCOUNTER → 2025-01-24 | Outpatient (CLI) | payer MEDICAID ==
--- NOTE | 2025-01-24 11:24 | MM ---
Reason for Exam: Screening (asymptomatic). Last mammogram was performed 1 year(s) and 1 month(s) ago. Patient History: Menarche at age 10. First Full-Term at age 22. Postmenopausal. Patient has history of breast feeding. Estrogen, starting at age 51 for 2 years. Progesterone, starting at age 51 for 2 years. Hormonal Contraceptives for 6 years from age 14 until age 20. Maternal aunt had ovarian cancer at or over age 50. Risk Values: Brooklyn 5 year model risk: 1.5%. NCI Lifetime model risk: 5.4%. Prior Study Comparison: 05/22/2022 Right MG 3D diag mammo w/cad RT, [facility]. 01/13/2023 Bilateral MG 3D screening mammo w/cad, [facility]. 01/15/2024 Bilateral MG 3D screening mammo w/cad, [facility]. Tissue Density: The breasts are heterogeneously dense, which may obscure small masses. Findings: Analyzed By CAD. Asymmetric density inferior right MLO view is unchanged. There is no suspicious group of microcalcifications or new suspicious mass in either breast. Overall Assessment: Benign, BI-RAD 2 Management: Screening Mammogram of both breasts in 1 year. Patient should continue monthly self-breast exams. A clinical breast exam by your physician is recommended on an annual basis. This exam should not preclude additional follow-up of suspicious palpable abnormalities. Note on Brooklyn scores and lifetime risk: 1. A Brooklyn score greater than 3% is considered moderate risk. If this is the case, consider specialist referral to assess eligibility for a risk reducing agent. 2. If overall lifetime risk for the development of breast cancer is 20% or higher, the patient may qualify for future screening with alternating mammogram and breast MRI. [facility], , 01/24/2025 11:21 AM. Electronically signed and approved by: Kaylynn Ley M.D. Radiologist
== END | disposition home or self-care (01) ==
LOC: RADMAMWWP 08:27
PROVIDERS: ATTEND Obstetrics & Gynecology
DX: Z12.31 Encounter for screening mammogram for malignant neoplasm of breast (principal); R92.333 Mammographic heterogeneous density, bilateral breasts; Z78.0 Asymptomatic menopausal state; Z80.3 Family history of malignant neoplasm of breast
CPT/HCPCS: 77063; 77067